=== PATIENT | male | born 1995 | race Caucasian/White ===

== ENCOUNTER → 2018-10-11 04:40 | Emergency (ER) | payer OTHER ==
[~2018-10-11 04:40] MED LIST: Bisacodyl SUPP* 10 MG SUPP PR ONE; LORazepam INJ* 2 MG/ML 1 ML VIAL IV PUSH ONE; Magnesium CITRATE* 300 ML BTL PO ONE; NS 0.9% 1000 ML* 1,000 ML IV ONE
--- NOTE | 2018-10-11 04:55 | ED ---
Abdominal Pain/Male - HPI Summary HPI Summary: Patient is a 23 y/o M presenting to ED via ambulance for abdominal pain and shaking. He awoke with abdominal pain at 0330, he denies vomiting, patient had a normal bowel movement ten minutes after pain onset. 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 Patient is prescribed Zoloft, states that he has not been taking this medications. He reports that he has been having cold Sx for the past five weeks, went to provider and was given antibiotics. Patient states that he finished antibiotics 5 days ago. He reports Hx of shakes but states that present Sx is more severe. In the room, he states that pain has lessened slightly since onset. On triage, pain is rated 6/10, nothing is noted to aggravate/alleviate Sx. Home medications and allergies are reviewed. - History of Current Complaint Chief Complaint: EDAbdPain Stated Complaint: ABD PAIN Time Seen by Provider: 10/11/18 04:46 Hx Obtained From: Patient Onset/Duration: Lasting Hours - onset 0330, Still Present Timing: Constant, Lasting Hours - onset 0330 Severity Initially: Severe Severity Currently: Moderate - 6/10 Pain Intensity: 6 Pain Scale Used: 0-10 Numeric - 6/10 Aggravating Factor(s): Nothing Alleviating Factor(s): Nothing Associated Signs And Symptoms: Positive: Other - positive - shaking. Negative: Vomiting - Allergies/Home Medications Allergies/Adverse Reactions: Allergies Allergy/AdvReac Type Severity Reaction Status Date / Time No Known Allergies Allergy Verified 10/11/18 04:46 Home Medications: Home Medications NK [No Home Medications Reported] 10/11/18 [History Confirmed 10/11/18] PMH/Surg Hx/FS Hx/Imm Hx GI History: Reports: Hx Irritable Bowel Sensory History: Denies: Hx Legally Blind, Hx Deafness Opthamlomology History: Denies: Hx Legally Blind EENT History: Denies: Hx Deafness Psychiatric History: Reports: Hx Anxiety Infectious Disease History: No Infectious Disease History: Denies: Traveled Outside the [place] in Last 30 Days - Family History Known Family History: Negative: Blood Disorder - Social History Alcohol Use: None Substance Use Type: Reports: Marijuana Smoking Status (MU): Never Smoked Tobacco Review of Systems Positive: Other - POSITIVE - SHAKING Positive: Abdominal Pain. Negative: Vomiting All Other Systems Reviewed And Are Negative: Yes Physical Exam - Summary Physical Exam Summary: VITAL SIGNS: Reviewed. GENERAL: Patient is a well-developed and nourished male who is lying comfortable in the stretcher. Patient is not in any acute respiratory distress. HEAD AND FACE: No signs of trauma. No ecchymosis, hematomas or skull depressions. No sinus tenderness. EYES: PERRLA, EOMI x 2, No injected conjunctiva, no nystagmus. EARS: Hearing grossly intact. Ear canals and tympanic membranes are within normal limits. MOUTH: Oropharynx within normal limits. NECK: Supple, trachea is midline, no adenopathy, no JVD, no carotid bruit, no c- spine tenderness, neck with full ROM. CHEST: Symmetric, no tenderness at palpation LUNGS: Clear to auscultation bilaterally. No wheezing or crackles. CVS: Regular rate and rhythm, S1 and S2 present, no murmurs or gallops appreciated. ABDOMEN: Soft, non-tender. No signs of distention. No rebound no guarding, and no masses palpated. Bowel sounds are hyperactive. EXTREMITIES: FROM in all major joints, no edema, no cyanosis or clubbing. NEURO: Alert and oriented x 3. No acute neurological deficits. Speech is normal and follows commands. SKIN: Dry and warm Triage Information Reviewed: Yes Vital Signs On Initial Exam: Initial Vitals Temp Pulse Resp BP Pulse Ox 98.7 F 82 18 119/70 99 10/11/18 04:44 10/11/18 04:44 10/11/18 04:44 10/11/18 04:44 10/11/18 04:44 Vital Signs Reviewed: Yes Diagnostics - Vital Signs Vital Signs Temp Pulse Resp BP Pulse Ox 10/11/18 04:44 98.7 F 82 18 119/70 99 - Laboratory Result Diagrams: 10/11/18 05:07 10/11/18 05:07 Lab Statement: Any lab studies that have been ordered have been reviewed, and results considered in the medical decision making process. - Radiology ABDOMEN X-RAY Radiology Interpretation Completed By: ED Physician Summary of Radiographic Findings: INCREASED COLONIC GAS AND STOOL Re-Evaluation - Re-Evaluation First Eval Re-Evaluation Time: 05:49 Comment: Results discussed with patient, he will be discharged to home. Abdominal Pain Fem Course/Dx - Course Course Of Treatment: Patient is a 23 y/o M presenting to ED via ambulance for abdominal pain and shaking. He awoke with abdominal pain at 0330, he denies vomiting, patient had a normal bowel movement ten minutes after pain onset. 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 Patient is prescribed Zoloft, states that he has not been taking this medications. He reports that he has been having cold Sx for the past five weeks, went to provider and was given antibiotics. Patient states that he finished antibiotics 5 days ago. He reports Hx of shakes but states that present Sx is more severe. In the room, he states that pain has lessened slightly since onset. On physical exam, hyperactive bowel sounds are noted. Labs showed WBC 4.4, glucose 104, CRP < 1, AST 18, ALT 16, Alk Phos 72, amylase 61, lipase 61. UA negative. ABDOMEN X-RAY INCREASED COLONIC GAS AND STOOL. During ED course, patient received fluids and Ativan 1 mg, Citrate of Magnesia 300 ml PO, Dulcolax Supp 10 mg MO. Results discussed with patient, he will be discharged to home. - Diagnoses Provider Diagnoses: Constipation, IBS (irritable bowel syndrome), Abdominal gas pain Discharge - Sign-Out/Discharge Documenting (check all that apply): Patient Departure - DISCHARGE - Discharge Plan Condition: Stable Disposition: HOME Patient Education Materials: Irritable Bowel Syndrome (ED), Constipation (ED) Referrals: Conner Patton MD [Primary Care Provider] - 2 Days Additional Instructions: RETURN TO THE EMERGENCY DEPARTMENT FOR CHANGING OR WORSENING SYMPTOMS. FOLLOW UP WITH PRIMARY CARE PHYSICIAN IN 1-2 DAYS. - Attestation Statements Document Initiated by Lupeibe: Yes Documenting Scribe: ALYSON ADAMS Provider For Whom Oneal is Documenting (Include Credential): SHANT BUI MD Scribe Attestation: ALYSON Cardoso , scribed for SHANT BUI MD on 10/11/18 at 0550. Status of Scribe Document: Ready
[2018-10-11 05:15] LABS: ABS Basophils 0 10^3/ul (0-0.2); ABS Eosinophils 0.2 10^3/ul (0-0.6); ABS Lymphocytes 1.4 10^3/ul (1.0-4.8); ABS Monocytes 0.4 10^3/ul (0-0.8); ABS Neutrophils 2.4 10^3/ul (1.5-7.7); ABS Nucleated RBC 0 10^3/ul; Eosinophil % 5.1 %; Hematocrit 45 % (42-52); Hemoglobin 15.4 g/dl (14.0-18.0); Lymphocyte % 31.6 %; Mean Corpuscular HGB Conc 35 g/dl (31-36); Mean Corpuscular Hemoglobin 31 pg (27-31); Mean Corpuscular Volume 89 fL (80-94); Nucleated Red Blood Cells % 0.1; Platelet Count 158 10^3/ul (150-450); Red Cell Distribution Width 13 % (10.5-15); White Blood Count 4.4 10^3/ul (3.5-10.8)
--- OUTSIDE RECORDS SUMMARY | 2018-10-11 05:30 | XMS REPORT ---
:1995 External Reference #:[id number] Author Organization [facility] Address [address] [place] [address] Phone [phone] Care Team Providers Name Role Phone Conner Patton MD Care Team Information [employer] Administrative Assistant Unavailable Conner Patton MD Primary Care Physician Unavailable Payers Type Date Identification Numbers Payment Provider Subscriber Health Maintenance Effective: Policy Number: [employer] [facility] ([facility] – [place] 09/20/2012 [id number] Group Number: [id number] [address] PayID: [id number] [place] [address] Problems Description No Information Social History Type Date Description Comments Smoking Vaping Marijuana oils Allergies, Adverse Reactions, Alerts Date Description Reaction Status Severity Comments 12/30/2017 NKDA active Medications Medication Date Status Form Strength Qnty SIG Indications Ordering Provider Amoxicillin Hx Capsules 500mg 30caps 1 by J01.90 Dayanna 019 - mouth [facility], three Afnp-C 019 times a day No Active Hx Unknown Medications 019 - 019 Zoloft 0 Hx Tablets 100mg 1 by Unknown 000 - mouth every 019 day Vital Signs Date Vital Result Comment 09/27/2018 BP Systolic 100 mmHg BP Diastolic 60 mmHg Heart Rate 66 /min Body Temperature 98.6 F Respiratory Rate 16 /min Height 74 inches 6'2" Weight 163.12 lb BMI (Body Mass Index) 20.9 kg/m2 01/10/2018 BP Systolic 92 mmHg BP Diastolic 60 mmHg Heart Rate 64 /min Body Temperature 98.6 F Respiratory Rate 16 /min Height 74 inches 6'2" Weight 158.50 lb BMI (Body Mass Index) 20.3 kg/m2 12/30/2017 BP Systolic 108 mmHg BP Diastolic 76 mmHg Heart Rate 92 /min Body Temperature 98.8 F Height 74 inches 6'2" Weight 171.00 lb BMI (Body Mass Index) 22.0 kg/m2 Results Test Date Test Result H/L Range Note Comprehensive Metabolic Prof 01/10/2018 Sodium 143 mEq/L 134-149 Potassium 4.5 mEq/L 3.6-5.5 Chloride 101 mEq/L 94-112 Carbon Dioxide 28 mEq/L 21-32 Glucose 103 mg/dL 70-105 BUN 8 mg/dL 6-26 Creatinine 0.9 mg/dL 0.6-1.4 BUN/Creat Ratio 8.9 CALC 8.0-36.0 Calcium 9.9 mg/dL 8.6-10.2 Total Protein 7.2 g/dL 6.4-8.3 Albumin 5.0 g/dL 3.8-5.5 Globulin 2.2 g/dL 2.0-4.8 A/G Ratio 2.3 CALC 0.6-2.3 Alk. Phosphatase 64 U/L 22-95 Alt (SGPT) 17 U/L 7-35 Ast (Sgot) 20 U/L 5-34 Total Bilirubin 0.7 mg/dL 0.2-1.3 GFR Non- >60 ml/min/1.73m^ >=60 GFR >60 ml/min/1.73m^ >=60 Laboratory test finding 01/10/2018 Amylase, Serum 49 U/L 20-105 CBC Electronic Fma 01/10/2018 WBC 3.2 x10^3/UL Low 4.0-10.0 1 RBC 5.31 x10^6/UL 3.93-6.00 HGB 16.4 g/dL 12.0-17.0 HCT 47 % 35-50 MCV 87.8 fL 80.0-95.0 MCH 30.9 pg 25.6-32.2 MCHC 35.2 g/dL 32.2-36.0 RDW-CV 12.0 % 11.6-14.4 PLT 205 x10^3/UL 163-400 MPV 10.9 fL 9.4-12.4 Tony# 1.74 x10^3/UL 1.56-6.13 Lymph# 0.94 x10^3/UL Low 1.18-3.74 Dewey# 0.28 x10^3/UL 0.24-0.82 Eos # 0.1 x10^3/UL 0.0-0.5 Baso # 0.04 x10^3/UL 0.01-0.08 Tony% 56.3 % 34.0-70.0 Lymph % 30.4 % 20.0-52.0 Dewey% 9.1 % 5.0-12.0 Eos% 2.6 % 0.7-7.0 Baso% 1.3 % High 0.1-1.2 Laboratory test 01/10/2018 Vitamin B-12 1436 pg/mL High 230-1050 finding Laboratory test 01/10/2018 Lipase 18 U/L 13-78 2 finding Laboratory test 12/31/2017 C Difficile PCR SEE RESULT BELOW 3 finding Laboratory test 12/31/2017 Parasitic Examination See Comment 4 finding 1 RESULTS VERIFIED BY REPEAT ANALYSIS 2 1sst 3 SEE RESULT BELOW Name: LITO LITTLEJOHN : [address]: Conner Patton MD Acct: [id number] Unit: [id number] AGE: 22 Location: [facility] Re12/31/17 SEX: M Status: REG REF SPEC: [id number] JOSE R: 12/31/17-[address] [place] [address] DR: Conner Patton MD REQ: [id number] RECD: 12/31/17 STATUS: COMP _ SOURCE: STOOL SPDESC: ORDERED: Johnny joseph PCR, Stool Culture, O P: Giar/Crypt Procedure Result Reported Site Stool Culture Final 01/02/18- 1019 ML Result No enteric pathogens isolated Testing for Salmonella, Shigella, Aeromonas, Plesiomonas, Yersinia and Campylobacter are included in a Stool Culture. Vibrio spp not routinely tested for in a stool culture. If testing is desired, please request specifically when placing test order. Sensitivities not routinely performed on stool isolates, as antibiotics may prolong the carriage rate of bacteria. Please contact the microbiology lab if sensitivities are required. Stool Specimen Description Final 12/31/17- 1407 ML Stool Color Brown Stool Form Semi-formed Stool Consistency Soft * This is a revised result. * A prior result that was reported as final has been changed. Report revised on: 12/31/17 1407 Shiga Toxin 1 2 Final 01/03/18- 1008 ML CONTINUED ON NEXT PAGE DEPARTMENT OF PATHOLOGY, [address] [place] [address] Miles Bejarano M.D. Director RENE # [id number] Patient: LITO LITTLEJOHN [id number] (Continued) Specimen: [id number] Collected: 12/31/17-1099 Received: 12/31/17-1311 (Continued) Procedure Result Reported Site Shiga Toxin 1 2 Final (continued) 01/03/18- 1008 Organism 1 Negative Shiga Toxin 1 2 Immunochromatographic Assay C. difficile PCR Final 12/31/17- 1437 ML Organism 1 027 Presumptive NEGATIVE Organism 2 Toxigenic C.diff NEGATIVE O P: Giardia/Cryptospor Screen Final 01/03/18- 1014 ML Organism 1 Neg Cryptosporidium/Giardia Giardia and cryptosporidium antigen testing performed by enzyme immunoassay. If patient is immunocompromised or has traveled to or is from a developing country, a full ova and parasite exam with microscopic (OPMIC) is recommended. All samples will be held one month in case full ova and parasite testing is requested. Contact the Microbiology Department at [phone]. TEST LIMITATIONS: As with all diagnostic procedures, the results obtained should be used in conjunction with other clinical information available the physician, including confirmation by another method. Negative results can occur in samples containing antigen below lower limits of detection of the assay. One negative specimen does not rule out the possibility of a parasitic infection. To improve detection it is recommended that three specimens be collected on separate days over a period of not more than seven days. The use of colonic washes, aspirates or other diluted sample types has not been established and could affect the performance of the assay. Stool samples contaminated with an oily or particulate base (eg. Barium, mineral oil etc.) could interfere with the test and are not recommended. * ML - Main Lab . END OF REPORT DEPARTMENT OF PATHOLOGY, [address] [place] [address] Miles Bejarano M.D. Director [facility] # [id number] 4 SOURCE: STOOL PARASITIC EXAMINATION FINAL No parasites seen. Cryptosporidium, Cyclospora, and microsporidia are not readily detected by this method. Single negative specimen does not rule out parasitic infection. Test Performed by: [address] [address] Procedures Date CPT Code Description Status 01/31/2018 Colonoscopy Completed Encounters Type Date Location Provider CPT E/M Dx Office Visit 01/10/2018 10:45a Main Office [place] Juan [address] R11.2 Office Visit 12/30/2017 3:00p [place] [address] R19.7 Plan of Care 09/27/2018 - Dayanna Mcgregor, [place]-CJ01.90 Acute sinusitis, unspecifiedNew Medication:Amoxicillin 500 mgAllComments:~B_~U_Medication Management~b_~u_ Patient Understands medications he's taking? Yes No no rx meds Are there Barriers to Adherence? Yes No na Has the patient been asked about herbal supplements and therapies, and OTC meds? Yes No ~B_~U_Care Plan~b_ ~u_1. Patient has been queried about patient's goals/preferences and functional /lifestyle goals at relevant visits. If relevant,describe: na2. Treatment goals as explained to the patient: abovesx resolution ibs management 3. Are there barriers to meeting treatment goals? Yes No If Yes, please describe:4. Self-Management goals as described to the patient: Yes No cont sx rx: f/u if no better after rx or if sx worsen will refer for dietary consult
[2018-10-11 05:32] LABS: ALT 16 U/L (7-52); AST 18 U/L (13-39); Albumin 4.5 g/dL (3.2-5.2); Albumin/Globulin Ratio 1.7 (1-3); Alkaline Phosphatase 72 U/L (34-104); Amylase 61 U/L (29-103); Anion Gap 7 mmol/L (2-11); BUN/Creatinine Ratio 15.3 (8-20); Blood Urea Nitrogen 15 mg/dL (6-24); C Reactive Protein < 1.00 mg/L (<8.01); CO2 Carbon Dioxide 29 mmol/L (22-32); Calcium 9.9 mg/dL (8.6-10.3); Chloride 104 mmol/L (101-111); Globulin 2.6 g/dL (2-4); Glucose 104 mg/dL (70-100); Potassium 3.7 mmol/L (3.5-5.0); Sodium 140 mmol/L (135-145); Total Protein 7.1 g/dL (6.4-8.9)
[2018-10-11 05:34] LABS: Urine Appearance Clear; Urine Bilirubin Negative (Negative); Urine Blood Negative (Negative); Urine Color Colorless; Urine Glucose Negative (Negative); Urine Ketones Negative (Negative); Urine Nitrite Negative (Negative); Urine Protein Negative (Negative); Urine Specific Gravity 1.001 (1.010-1.030); Urine Urobilinogen Negative (Negative)
[2018-10-11 06:38] VITALS: BP 126/63
== END | disposition home or self-care (01) ==
LOC: ED 04:40
DX: R10.9 Unspecified abdominal pain (principal); K59.00 Constipation, unspecified; K58.1 Irritable bowel syndrome with constipation
CPT/HCPCS: 36415; 74019; 80053; 81003; 82150; 83690; 83735; 85025; 86140; 96374; 99283; A9270-GY; J2060